=== PATIENT | male | born 2000 | race Caucasian/White ===

== ENCOUNTER → 2022-07-19 | Outpatient (CLI) | payer OTHER ==
[~2022-07-19] MED LIST: Bactrim Ds Tab1 EACH PO; CEPH500 PO; METPHE10 PO; Norco 5-325 Ta1 EACH PO
== END | disposition home or self-care (01) ==
LOC: LAB 10:05 → LAB SHORT 10:05
DX: J02.9 Acute pharyngitis, unspecified (principal)
CPT/HCPCS: 87081